=== PATIENT | male | born 1950 | race Caucasian/White ===

== ENCOUNTER 2017-02-18 14:56 | Outpatient (CLI) | payer MEDICARE ==
--- NOTE | 2017-02-18 19:34 | RAD ---
TWO VIEWS KUB: History: Renal stones. Comparisons made with CT dated 07-23-10. FINDINGS: No suspicious stones are seen over the expected course of the renal collecting systems. There are mul tiple small phleboliths seen within the lower pelvis. There is mild scattered degenerative change mos t pronounced at L5-S1 where there is severe facet osteoarthritic change. No acute osseous abnormality is evident. IMPRESSION: No suspicious calcifications demonstrated. POS: JEAN CLAUDE
== END 2017-02-18 14:57 | disposition home or self-care (01) ==
LOC: RAD 14:56
PROVIDERS: ATTEND Urology
DX: Z87.442 Personal history of urinary calculi (principal)
CPT/HCPCS: 74000

== ENCOUNTER 2017-04-24 16:30 | Outpatient (CLI) | payer MEDICARE ==
[2017-04-24 17:41] LABS: Hemoglobin 13.4 g/dL (14.0-18.0); Mean Corpuscular HGB CONC 32.7 g/dL (32.0-36.0); Mean Corpuscular Hemoglobin 33.5 pg (27.0-31.0); Mean Platelet Volume 7.6 fL (7.4-10.4); Platelet Count 234 thou/uL (130-400); RBC Distribution Width 11.4 % (11.5-14.5); Red Blood Cell (RBC) Count 4.01 mill/uL (4.70-6.10); White Blood Cell (WBC) Count 6.8 thou/uL (4.8-10.8)
[2017-04-24 17:45] LABS: PTT 28.6 SEC (22.9-36.1)
[2017-04-24 17:46] LABS: Prothrombin Time 13.4 SEC (12.0-14.7)
[2017-04-24 18:19] LABS: Anion Gap 10 mmol/L (10-20); BUN (Urea Nitrogen) 14 mg/dL (8.4-25.7); Calc. Creatinine Clearance 0 mL/min (70-130); Calcium 9.5 mg/dL (7.8-10.44); Carbon Dioxide 26 mmol/L (23-31); Chloride 107 mmol/L (98-107); Estimated GFR-MDRD 86; Glucose 86 mg/dL (80-115); Sodium 139 mmol/L (136-145)
== END 2017-04-24 16:31 | disposition home or self-care (01) ==
LOC: LABBT 16:30
PROVIDERS: ATTEND Urology
DX: Z01.812 Encounter for preprocedural laboratory examination (principal); N40.0 Benign prostatic hyperplasia without lower urinary tract symptoms
CPT/HCPCS: 80048; 81001; 85027; 85610; 85730

== ENCOUNTER 2017-04-30 07:55 | Day surgery (SDC) | payer MEDICARE ==
[2017-04-24 16:59] VITALS: BMI 30.2
[2017-04-30] MEDS ORDERED: ePHEDrine/0.9% NaCl/PF SYRINGE 50 mg/10 ml ONE (11:18)
[2017-04-30] MEDS ORDERED: Dexamethasone 20 MG/5 ML VIAL ONE (11:18)
[2017-04-30] MEDS ORDERED: Ondansetron HCl/PF 4 MG/2 ML Vial ONE (11:18)
[2017-04-30] MEDS ORDERED: Lidocaine 1% PF 5 ML VIAL ONE (11:18)
[2017-04-30] MEDS ORDERED: PROPOFOL 200 MG/20 ML VIAL ONE (11:18)
[2017-04-30] MEDS ORDERED: Metoclopramide HCl 10 MG/2 ML VIAL ONE (11:18)
[2017-04-30] MEDS ORDERED: diphenhydrAMINE 50 MG/ML VIAL ONE (11:18)
[2017-04-30] MEDS ORDERED: Levofloxacin 500 mg/D5W 100 ml Premix Bag ONE (11:44)
[2017-04-30] MEDS ORDERED: Dexamethasone 10 MG in Sodium Chloride 0.9% 50 ML IVPB SCH (12:00)
[2017-04-30] MEDS ORDERED: B & O ONE (12:32)
[2017-04-30] MEDS ORDERED: Midazolam HCl 2 mg/2 ml Vial ONE (13:33)
[2017-04-30] MEDS ORDERED: Fentanyl 100 MCG/2 ML VIAL ONE (13:33)
[2017-04-30] MEDS ORDERED: Morphine 4 MG/ML VIAL ONE (15:32)
[2017-04-30] MEDS ORDERED: HYDROcodone/Acetaminophen 5/325 mg Tablet ONE (16:19)
--- NOTE | 2017-05-01 00:19 | OP ---
DATE OF SERVICE: 04/30/2017 PREOPERATIVE DIAGNOSIS: Benign prostatic hypertrophy. POSTOPERATIVE DIAGNOSIS: Benign prostatic hypertrophy. PROCEDURE: GreenLight laser vaporization of the prostate. SURGEON: Dr. Hernandez. ANESTHESIA: General with LMA. FINDINGS: Adequate resection of the prostatic urethra. Good stream noted at the end of the case. [id number] used COMPLICATIONS: No complications. BLOOD LOSS: Minimal blood loss. DRAIN REMAININ-Finnish 2-way. SPECIMENS: Prostate. DESCRIPTION OF PROCEDURE: The patient was brought to the room by Anesthesia and kept in supine position. After general anesthetic, , his legs were placed in lithotomy position. His perineum was prepped and draped in a sterile fashion. Using a 23-Finnish cystoscope and a 30-degree lens, it was traversed and the bladder inspected. The ureteral orifices were identified and preserved throughout the case. The high-riding bladder neck was taken down to the level of the trigone. A power level 80 was used for the majority of this and the lateral lobes near the bladder neck near the mid gland. A power of 180 was used. A portion of the tissue was wedged so there were a couple chips sent for specimen, but the prostate itself was small enough that enucleation was not required. When adequate resection appeared to be done, the scope was removed and the stream was noted strong and bit delayed in comparison to what I would expect, so I went back in and noted that the ureter did seem quite prominent and might have been obstructing so I took the veru down with a power level of 60 and then further contoured the bladder neck and apex. When the full bladder and the scope removed, a good stream was noted. The scope was pulled back in and the bladder decompressed. Hemostasis insured with a power level of 60 pending some of the prostatic bed or any areas of concern. All the chips and debris were noted to be out and then the scope was removed the final timeout and a 20-Finnish catheter was placed to gravity. Total of 92,677 joules were used. The patient was then awakened and transferred to PACU in stable condition. [facility]
--- NOTE | 2017-05-02 00:48 | EKG ---
Test Reason : PREOP Blood Pressure : / mmHG Vent. Rate : 053 BPM Atrial Rate : 053 BPM P-R Int : 154 ms QRS Dur : 098 ms QT Int : 458 ms P-R-T Axes : 058 024 035 degrees QTc Int : 429 ms Sinus bradycardia Otherwise normal ECG No previous ECGs available Confirmed by CAN PETERSON, DR. Flores ([id number]) on 05/02/2017 12:47:59 AM Referred By: JIMMIE Confirmed By:DR. Sandra NORTH MD
== END 2017-04-30 16:49 | disposition home or self-care (01) ==
LOC: SDC 07:55
PROVIDERS: ATTEND Urology
PROC: 0V508ZZ Destruction of Prostate, Via Natural or Artificial Opening Endoscopic (ICD-10-PCS; principal; 2017-04-30)
DX: N40.1 Benign prostatic hyperplasia with lower urinary tract symptoms (principal); R35.0 Frequency of micturition; I25.10 Atherosclerotic heart disease of native coronary artery without angina pectoris; E78.5 Hyperlipidemia, unspecified; I10 Essential (primary) hypertension; Z79.82 Long term (current) use of aspirin; Z79.899 Other long term (current) drug therapy; Z98.890 Other specified postprocedural states; Z87.442 Personal history of urinary calculi; Z87.891 Personal history of nicotine dependence
CPT/HCPCS: 88305; 93005; 93010; 96374; J0131; J1100; J1200; J1956; J2001; J2250; J2270; J2405; J2704; J2765; J3010; J7050

== ENCOUNTER 2025-02-03 17:01 | Inpatient (IN) | payer MEDICARE ==
[2025-02-03] MEDS ORDERED: Ondansetron PF 4 MG/2 ML Vial IVP PRN (21:34)
[2025-02-04 08:03] LABS: ALT (SGPT) 503 U/L (Less than 45); AST (SGOT) 208 U/L (11-34); Albumin 2.5 g/dL (3.1-4.5); Alkaline Phosphatase 187 U/L (40-110); Anion Gap 16 mmol/L (10-20); BUN (Urea Nitrogen) 37 mg/dL (8.4-25.7); Bilirubin, Total 0.7 mg/dL (0.3-1.2); Calc. Creatinine Clearance 12 mL/min (70-130); Calcium 7.8 mg/dL (7.8-10.44); Carbon Dioxide 17 mmol/L (23-31); Chloride 102 mmol/L (98-107); Globulin 2.1 g/dL (2.4-3.5); Glucose 92 mg/dL (83-110); Potassium 4.3 mmol/L (3.5-5.1); Sodium 131 mmol/L (136-145)
[2025-02-04] MEDS: Famotidine 20 MG TAB PO SCH (08:19)
[2025-02-04 09:23] LABS: #Basophils Less than 0.03 10x3/uL (0.0-0.2); #Eosinophils 0.23 10x3/uL (0.0-0.7); #Monocytes 0.80 10x3/uL (0.11-0.59); #Neutrophils 4.87 10x3/uL (1.40-6.50); %Basophils 0.2 % (0.0-1.0); %Eosinophils 2.8 % (0.0-10.0); %Lymphocytes 28.1 % (21.0-51.0); %Monocytes 9.7 % (0.0-10.0); %Neutrophils 58.8 % (42.0-75.0); Hematocrit 33.1 % (42.0-52.0); Hemoglobin 10.9 g/dL (14.0-18.0); Mean Corpuscular Hemoglobin 32.3 pg (27.0-31.0); Mean Corpuscular Volume 98.2 fL (78.0-98.0); Platelet Count 106 10x3/uL (130-400); Red Blood Cell (RBC) Count 3.37 mill/uL (4.70-6.10); White Blood Cell (WBC) Count 8.28 10x3/uL (4.8-10.8)
[2025-02-04 10:50] LABS: Burr Cells MODERATE= 6-15 cells HPF (0-1); Platelet Adequacy Comment Platelets Decreased; Polychromasia SLIGHT = 2-3 cells HPF (0-2)
[2025-02-04 10:52] LABS: Hematocrit 33.1 % (42.0-52.0); Hemoglobin 11.3 g/dL (14.0-18.0)
[2025-02-04] MEDS: Pantoprazole 40 MG VIAL IVP SCH ×2 (11:35→21:06)
[2025-02-04] MEDS ORDERED: Piperacillin/Tazobactam 2.25 GM in Sodium Chloride 0.9% 100 ML IVPB SCH (19:00)
[2025-02-04 19:06] LABS: #Basophils Less than 0.03 10x3/uL (0.0-0.2); #Eosinophils 0.23 10x3/uL (0.0-0.7); #Monocytes 1.12 10x3/uL (0.11-0.59); #Neutrophils 4.89 10x3/uL (1.40-6.50); %Basophils 0.2 % (0.0-1.0); %Eosinophils 2.7 % (0.0-10.0); %Lymphocytes 27.1 % (21.0-51.0); %Monocytes 13.0 % (0.0-10.0); %Neutrophils 56.8 % (42.0-75.0); Hematocrit 32.5 % (42.0-52.0); Hemoglobin 10.8 g/dL (14.0-18.0); Mean Corpuscular Hemoglobin 32.6 pg (27.0-31.0); Mean Corpuscular Volume 98.2 fL (78.0-98.0); Platelet Count 106 10x3/uL (130-400); Red Blood Cell (RBC) Count 3.31 mill/uL (4.70-6.10); White Blood Cell (WBC) Count 8.61 10x3/uL (4.8-10.8)
[2025-02-05 05:52] LABS: ALT (SGPT) 342 U/L (Less than 45); AST (SGOT) 84 U/L (11-34); Albumin 2.4 g/dL (3.1-4.5); Alkaline Phosphatase 161 U/L (40-110); Anion Gap 17 mmol/L (10-20); BUN (Urea Nitrogen) 40 mg/dL (8.4-25.7); Bilirubin, Total 0.7 mg/dL (0.3-1.2); Calc. Creatinine Clearance 10 mL/min (70-130); Calcium 7.8 mg/dL (7.8-10.44); Carbon Dioxide 15 mmol/L (23-31); Chloride 101 mmol/L (98-107); Globulin 2.2 g/dL (2.4-3.5); Glucose 87 mg/dL (83-110); Potassium 4.3 mmol/L (3.5-5.1); Sodium 129 mmol/L (136-145)
[2025-02-05 06:20] LABS: #Basophils 0.03 10x3/uL (0.0-0.2); #Eosinophils 0.32 10x3/uL (0.0-0.7); #Monocytes 1.05 10x3/uL (0.11-0.59); #Neutrophils 5.12 10x3/uL (1.40-6.50); %Basophils 0.3 % (0.0-1.0); %Eosinophils 3.7 % (0.0-10.0); %Lymphocytes 25.2 % (21.0-51.0); %Monocytes 12.0 % (0.0-10.0); %Neutrophils 58.5 % (42.0-75.0); Hematocrit 31.7 % (42.0-52.0); Hemoglobin 11.1 g/dL (14.0-18.0); Mean Corpuscular Hemoglobin 33.4 pg (27.0-31.0); Mean Corpuscular Volume 95.5 fL (78.0-98.0); Platelet Count 111 10x3/uL (130-400); Red Blood Cell (RBC) Count 3.32 mill/uL (4.70-6.10); White Blood Cell (WBC) Count 8.76 10x3/uL (4.8-10.8)
[2025-02-05 14:04] LABS: HBSAB Concentration Less than 8.00 mIU/mL; Hep B Core Total Ab NONREACTIVE (NonReactive); Hep B Core Total Index 0.07 S/CO (0-0.79); Hep B Surf Ag NONREACTIVE S/CO (NonReactive); Hep C IgG Ab NONREACTIVE S/CO (NonReactive); Hep C Index 0.04 S/CO (0-0.79)
[2025-02-05] MEDS: Heparin 10,000 UNITS/ 10 ML VIAL CATH PRN (19:51)
[2025-02-05] MEDS: Mupirocin 1 GM TUBE NASAL DECOLONIZATION NASAL SCH (20:52)
[2025-02-06 04:41] LABS: #Basophils 0.03 10x3/uL (0.0-0.2); #Eosinophils 0.15 10x3/uL (0.0-0.7); #Monocytes 1.06 10x3/uL (0.11-0.59); #Neutrophils 3.23 10x3/uL (1.40-6.50); %Basophils 0.5 % (0.0-1.0); %Eosinophils 2.4 % (0.0-10.0); %Lymphocytes 27.5 % (21.0-51.0); %Monocytes 17.1 % (0.0-10.0); %Neutrophils 52.0 % (42.0-75.0); Hematocrit 30.0 % (42.0-52.0); Hemoglobin 10.2 g/dL (14.0-18.0); Mean Corpuscular Hemoglobin 32.3 pg (27.0-31.0); Mean Corpuscular Volume 94.9 fL (78.0-98.0); Platelet Count 106 10x3/uL (130-400); Red Blood Cell (RBC) Count 3.16 mill/uL (4.70-6.10); White Blood Cell (WBC) Count 6.21 10x3/uL (4.8-10.8)
[2025-02-06 04:50] LABS: ALT (SGPT) 225 U/L (Less than 45); AST (SGOT) 43 U/L (11-34); Albumin 2.3 g/dL (3.1-4.5); Alkaline Phosphatase 131 U/L (40-110); Anion Gap 18 mmol/L (10-20); BUN (Urea Nitrogen) 31 mg/dL (8.4-25.7); Bilirubin, Total 0.9 mg/dL (0.3-1.2); Calc. Creatinine Clearance 11 mL/min (70-130); Calcium 7.7 mg/dL (7.8-10.44); Carbon Dioxide 16 mmol/L (23-31); Chloride 98 mmol/L (98-107); Globulin 2.2 g/dL (2.4-3.5); Glucose 78 mg/dL (83-110); Potassium 3.9 mmol/L (3.5-5.1); Sodium 128 mmol/L (136-145)
[2025-02-06] MEDS: PNEUMOC 20-VAL CONJ-DIP CRM/PF 0.5 ML SYRINGE IM ONE (08:06)
[2025-02-08 12:54] LABS: ALT (SGPT) 129 U/L (Less than 45); AST (SGOT) 28 U/L (11-34); Albumin 2.6 g/dL (3.1-4.5); Alkaline Phosphatase 110 U/L (40-110); Anion Gap 14 mmol/L (10-20); BUN (Urea Nitrogen) 28 mg/dL (8.4-25.7); Bilirubin, Total 0.6 mg/dL (0.3-1.2); Calc. Creatinine Clearance 10 mL/min (70-130); Calcium 7.9 mg/dL (7.8-10.44); Carbon Dioxide 21 mmol/L (23-31); Chloride 94 mmol/L (98-107); Globulin 2.4 g/dL (2.4-3.5); Glucose 105 mg/dL (83-110); Potassium 3.7 mmol/L (3.5-5.1); Sodium 125 mmol/L (136-145)
[2025-02-08 13:18] LABS: #Basophils Less than 0.03 10x3/uL (0.0-0.2); #Eosinophils 0.34 10x3/uL (0.0-0.7); #Monocytes 1.15 10x3/uL (0.11-0.59); #Neutrophils 4.03 10x3/uL (1.40-6.50); %Basophils 0.3 % (0.0-1.0); %Eosinophils 5.0 % (0.0-10.0); %Lymphocytes 18.3 % (21.0-51.0); %Monocytes 16.9 % (0.0-10.0); %Neutrophils 59.1 % (42.0-75.0); Hematocrit 27.7 % (42.0-52.0); Hemoglobin 9.6 g/dL (14.0-18.0); Mean Corpuscular Hemoglobin 33.0 pg (27.0-31.0); Mean Corpuscular Volume 95.2 fL (78.0-98.0); Platelet Count 114 10x3/uL (130-400); Red Blood Cell (RBC) Count 2.91 mill/uL (4.70-6.10); White Blood Cell (WBC) Count 6.82 10x3/uL (4.8-10.8)
[2025-02-08] MEDS: Acetaminophen 325 MG TAB PO PRN (20:13)
[2025-02-08 20:38] LABS: Myeloperoxidase AutoAbs <0.2 units (0.0-0.9); Proteinase-3 AutoAbs Less than 0.2 units (0.0-0.9)
[2025-02-08] MEDS: cloNIDine 0.1 MG TAB PO SCH (20:46)
[2025-02-09 08:53] LABS: Chloride 98 mmol/L (98-107); Potassium 4.5 mmol/L (3.5-5.1); Sodium 133 mmol/L (136-145)
[2025-02-09 08:54] LABS: Albumin 2.4 g/dL (3.1-4.5); Calcium 8.0 mg/dL (7.8-10.44)
[2025-02-09 08:55] LABS: Globulin 2.5 g/dL (2.4-3.5); Glucose 95 mg/dL (83-110)
[2025-02-09 08:56] LABS: Anion Gap 16 mmol/L (10-20); Carbon Dioxide 24 mmol/L (23-31)
[2025-02-09 08:58] LABS: Alkaline Phosphatase 98 U/L (40-110); Bilirubin, Total 0.6 mg/dL (0.3-1.2); Calc. Creatinine Clearance 13 mL/min (70-130)
[2025-02-09 08:59] LABS: BUN (Urea Nitrogen) 17 mg/dL (8.4-25.7)
[2025-02-09 09:01] LABS: ALT (SGPT) 100 U/L (Less than 45); AST (SGOT) 27 U/L (11-34)
[2025-02-09] MEDS: Lisinopril 10 MG TAB PO SCH (21:31)
[2025-02-10 04:41] LABS: ALT (SGPT) 82 U/L (Less than 45); AST (SGOT) 23 U/L (11-34); Albumin 2.4 g/dL (3.1-4.5); Alkaline Phosphatase 94 U/L (40-110); Anion Gap 17 mmol/L (10-20); BUN (Urea Nitrogen) 21 mg/dL (8.4-25.7); Bilirubin, Total 0.6 mg/dL (0.3-1.2); Calc. Creatinine Clearance 12 mL/min (70-130); Calcium 8.0 mg/dL (7.8-10.44); Carbon Dioxide 23 mmol/L (23-31); Chloride 96 mmol/L (98-107); Globulin 2.7 g/dL (2.4-3.5); Glucose 96 mg/dL (83-110); Potassium 3.8 mmol/L (3.5-5.1); Sodium 132 mmol/L (136-145)
[2025-02-10] MEDS: Methocarbamol 500 MG TAB PO PRN (18:16)
[2025-02-11 04:59] LABS: #Basophils Less than 0.03 10x3/uL (0.0-0.2); #Eosinophils 0.19 10x3/uL (0.0-0.7); #Monocytes 1.35 10x3/uL (0.11-0.59); #Neutrophils 6.19 10x3/uL (1.40-6.50); %Basophils 0.2 % (0.0-1.0); %Eosinophils 2.1 % (0.0-10.0); %Lymphocytes 15.3 % (21.0-51.0); %Monocytes 14.7 % (0.0-10.0); %Neutrophils 67.3 % (42.0-75.0); Hematocrit 25.6 % (42.0-52.0); Hemoglobin 8.6 g/dL (14.0-18.0); Mean Corpuscular Hemoglobin 33.2 pg (27.0-31.0); Mean Corpuscular Volume 98.8 fL (78.0-98.0); Platelet Count 164 10x3/uL (130-400); Red Blood Cell (RBC) Count 2.59 mill/uL (4.70-6.10); White Blood Cell (WBC) Count 9.20 10x3/uL (4.8-10.8)
[2025-02-11 05:09] LABS: ALT (SGPT) 60 U/L (Less than 45); AST (SGOT) 22 U/L (11-34); Albumin 2.3 g/dL (3.1-4.5); Alkaline Phosphatase 83 U/L (40-110); Anion Gap 17 mmol/L (10-20); BUN (Urea Nitrogen) 18 mg/dL (8.4-25.7); Bilirubin, Total 0.6 mg/dL (0.3-1.2); Calc. Creatinine Clearance 14 mL/min (70-130); Calcium 8.2 mg/dL (7.8-10.44); Carbon Dioxide 25 mmol/L (23-31); Chloride 97 mmol/L (98-107); Globulin 2.9 g/dL (2.4-3.5); Glucose 84 mg/dL (83-110); Potassium 3.8 mmol/L (3.5-5.1); Sodium 135 mmol/L (136-145)
[2025-02-11 06:56] VITALS: BMI 31.0
[2025-02-12 05:30] LABS: #Basophils 0.03 10x3/uL (0.0-0.2); #Eosinophils 0.49 10x3/uL (0.0-0.7); #Monocytes 1.13 10x3/uL (0.11-0.59); #Neutrophils 5.40 10x3/uL (1.40-6.50); %Basophils 0.3 % (0.0-1.0); %Eosinophils 5.6 % (0.0-10.0); %Lymphocytes 19.1 % (21.0-51.0); %Monocytes 12.9 % (0.0-10.0); %Neutrophils 61.8 % (42.0-75.0); Hematocrit 26.0 % (42.0-52.0); Hemoglobin 8.9 g/dL (14.0-18.0); Mean Corpuscular Hemoglobin 33.2 pg (27.0-31.0); Mean Corpuscular Volume 97.0 fL (78.0-98.0); Platelet Count 191 10x3/uL (130-400); Red Blood Cell (RBC) Count 2.68 mill/uL (4.70-6.10); White Blood Cell (WBC) Count 8.75 10x3/uL (4.8-10.8)
[2025-02-12 05:51] LABS: Anion Gap 15 mmol/L (10-20); BUN (Urea Nitrogen) 35 mg/dL (8.4-25.7); Calc. Creatinine Clearance 13 mL/min (70-130); Calcium 8.2 mg/dL (7.8-10.44); Carbon Dioxide 27 mmol/L (23-31); Chloride 96 mmol/L (98-107); Glucose 95 mg/dL (83-110); Potassium 3.6 mmol/L (3.5-5.1); Sodium 134 mmol/L (136-145)
[2025-02-14 05:59] LABS: #Basophils 0.06 10x3/uL (0.0-0.2); #Eosinophils 0.58 10x3/uL (0.0-0.7); #Monocytes 1.31 10x3/uL (0.11-0.59); #Neutrophils 5.52 10x3/uL (1.40-6.50); %Basophils 0.7 % (0.0-1.0); %Eosinophils 6.4 % (0.0-10.0); %Lymphocytes 17.9 % (21.0-51.0); %Monocytes 14.3 % (0.0-10.0); %Neutrophils 60.4 % (42.0-75.0); Hematocrit 27.3 % (42.0-52.0); Hemoglobin 9.1 g/dL (14.0-18.0); Mean Corpuscular Hemoglobin 32.6 pg (27.0-31.0); Mean Corpuscular Volume 97.8 fL (78.0-98.0); Platelet Count 261 10x3/uL (130-400); Red Blood Cell (RBC) Count 2.79 mill/uL (4.70-6.10); White Blood Cell (WBC) Count 9.13 10x3/uL (4.8-10.8)
[2025-02-14 06:18] LABS: ALT (SGPT) 37 U/L (Less than 45); AST (SGOT) 28 U/L (11-34); Albumin 2.6 g/dL (3.1-4.5); Alkaline Phosphatase 78 U/L (40-110); Anion Gap 18 mmol/L (10-20); BUN (Urea Nitrogen) 36 mg/dL (8.4-25.7); Bilirubin, Total 0.6 mg/dL (0.3-1.2); Calc. Creatinine Clearance 14 mL/min (70-130); Calcium 8.5 mg/dL (7.8-10.44); Carbon Dioxide 27 mmol/L (23-31); Chloride 97 mmol/L (98-107); Globulin 3.2 g/dL (2.4-3.5); Glucose 97 mg/dL (83-110); Magnesium 1.9 mg/dL (1.6-2.6); Potassium 3.7 mmol/L (3.5-5.1); Sodium 138 mmol/L (136-145)
[2025-02-15 06:11] LABS: Hematocrit 30.0 % (42.0-52.0); Hemoglobin 9.9 g/dL (14.0-18.0); Mean Corpuscular Hemoglobin 32.5 pg (27.0-31.0); Mean Corpuscular Volume 98.4 fL (78.0-98.0); Platelet Count 331 10x3/uL (130-400); Red Blood Cell (RBC) Count 3.05 mill/uL (4.70-6.10); White Blood Cell (WBC) Count 8.64 10x3/uL (4.8-10.8)
[2025-02-15 06:25] LABS: ALT (SGPT) 35 U/L (Less than 45); AST (SGOT) 42 U/L (11-34); Albumin 2.9 g/dL (3.1-4.5); Alkaline Phosphatase 84 U/L (40-110); Anion Gap 18 mmol/L (10-20); BUN (Urea Nitrogen) 43 mg/dL (8.4-25.7); Bilirubin, Total 0.6 mg/dL (0.3-1.2); Calc. Creatinine Clearance 12 mL/min (70-130); Calcium 8.8 mg/dL (7.8-10.44); Carbon Dioxide 27 mmol/L (23-31); Chloride 98 mmol/L (98-107); Globulin 3.5 g/dL (2.4-3.5); Glucose 98 mg/dL (83-110); Magnesium 1.8 mg/dL (1.6-2.6); Potassium 3.6 mmol/L (3.5-5.1); Sodium 139 mmol/L (136-145)
[2025-02-15 07:29] LABS: Platelet Adequacy Comment Platelets Normal; Polychromasia SLIGHT = 2-3 cells HPF (0-2)
[2025-02-15] MEDS: NIFEdipine XL 60 MG ER.TAB PO SCH (08:44)
[2025-02-15] MEDS ORDERED: Heparin 10,000 UNITS/ 10 ML VIAL ONE (13:30)
[2025-02-15] MEDS ORDERED: Famotidine/PF 20 mg/2ml Vial ONE (14:48)
[2025-02-15] MEDS ORDERED: fentaNYL PF 100 MCG/2 ML SYRINGE ONE (14:57)
[2025-02-15] MEDS ORDERED: Glycopyrrolate 0.2 MG/ML 5 ML SYRINGE ONE (14:58)
[2025-02-15] MEDS ORDERED: Lidocaine 1% PF 5 ML VIAL ONE (14:59)
[2025-02-15] MEDS ORDERED: PROPOFOL 200 MG/20 ML VIAL ONE (15:22)
[2025-02-15] MEDS ORDERED: Lidocaine 1% (PF) 30 ML VIAL ONE (15:38)
[2025-02-15] MEDS ORDERED: Ondansetron PF 4 MG/2 ML Vial ONE (15:41)
[2025-02-16 05:42] LABS: #Basophils 0.03 10x3/uL (0.0-0.2); #Eosinophils Less than 0.03 10x3/uL (0.0-0.7); #Monocytes 0.70 10x3/uL (0.11-0.59); #Neutrophils 6.04 10x3/uL (1.40-6.50); %Basophils 0.4 % (0.0-1.0); %Eosinophils 0.0 % (0.0-10.0); %Lymphocytes 14.6 % (21.0-51.0); %Monocytes 8.8 % (0.0-10.0); %Neutrophils 75.6 % (42.0-75.0); Hematocrit 26.7 % (42.0-52.0); Hemoglobin 9.2 g/dL (14.0-18.0); Mean Corpuscular Hemoglobin 33.2 pg (27.0-31.0); Mean Corpuscular Volume 96.4 fL (78.0-98.0); Platelet Count 311 10x3/uL (130-400); Red Blood Cell (RBC) Count 2.77 mill/uL (4.70-6.10); White Blood Cell (WBC) Count 7.99 10x3/uL (4.8-10.8)
[2025-02-16 06:06] LABS: ALT (SGPT) 28 U/L (Less than 45); AST (SGOT) 24 U/L (11-34); Albumin 2.6 g/dL (3.1-4.5); Alkaline Phosphatase 69 U/L (40-110); Anion Gap 18 mmol/L (10-20); BUN (Urea Nitrogen) 52 mg/dL (8.4-25.7); Bilirubin, Total 0.4 mg/dL (0.3-1.2); Calc. Creatinine Clearance 12 mL/min (70-130); Calcium 8.2 mg/dL (7.8-10.44); Carbon Dioxide 25 mmol/L (23-31); Chloride 99 mmol/L (98-107); Globulin 3.0 g/dL (2.4-3.5); Glucose 120 mg/dL (83-110); Magnesium 1.8 mg/dL (1.6-2.6); Potassium 4.2 mmol/L (3.5-5.1); Sodium 138 mmol/L (136-145)
[2025-02-16] MEDS: Heparin 10,000 UNITS/ 10 ML VIAL CATH SCH (12:41)
[2025-02-16 12:52] VITALS: BMI 31.0
[2025-02-16] MEDS: Pantoprazole 40 MG DR.TAB PO SCH (21:34)
[2025-02-17 05:24] LABS: Hematocrit 27.5 % (42.0-52.0); Hemoglobin 9.3 g/dL (14.0-18.0); Mean Corpuscular Hemoglobin 33.1 pg (27.0-31.0); Mean Corpuscular Volume 97.9 fL (78.0-98.0); Platelet Count 278 10x3/uL (130-400); Red Blood Cell (RBC) Count 2.81 mill/uL (4.70-6.10); White Blood Cell (WBC) Count 8.84 10x3/uL (4.8-10.8)
[2025-02-17 06:23] LABS: Anisocytosis SLIGHT = 6-15 cells HPF (0-5); Burr Cells SLIGHT = 2-5 cells HPF (0-1); Macrocytosis SLIGHT = 6-15 cells HPF (0-5); Platelet Adequacy Comment Platelets Normal; Polychromasia MODERATE = 3-4 cells HPF (0-2); Smudge Cells 11.8 %
[2025-02-17 08:25] VITALS: BP 152/81; TEMP 97.8
[2025-02-18] MEDS ORDERED: NIFEdipine XL 60 MG ER.TAB PO SCH (09:00)
[2025-02-18] MEDS ORDERED: Metoprolol Succinate XL 25 MG ER.TAB PO SCH (09:00)
== END 2025-02-17 15:37 | disposition home or self-care (01) | DRG 673 ==
LOC: T4-A 19:02
PROVIDERS: ADMIT Hospitalist; ATTEND Student in an Organized Health Care Education/Training Program
PROC: 3E03329 Introduction of Other Anti-infective into Peripheral Vein, Percutaneous Approach (ICD-10-PCS; 2025-02-04)
PROC: 02HV33Z Insertion of Infusion Device into Superior Vena Cava, Percutaneous Approach (ICD-10-PCS; principal; 2025-02-05)
PROC: B5181ZA Fluoroscopy of Superior Vena Cava using Low Osmolar Contrast, Guidance (ICD-10-PCS; 2025-02-05)
PROC: 5A1D70Z Performance of Urinary Filtration, Intermittent, Less than 6 Hours Per Day (ICD-10-PCS; 2025-02-05)
PROC: 0JH63XZ Insertion of Tunneled Vascular Access Device into Chest Subcutaneous Tissue and Fascia, Percutaneous Approach (ICD-10-PCS; 2025-02-15)
PROC: 02HV33Z Insertion of Infusion Device into Superior Vena Cava, Percutaneous Approach (ICD-10-PCS; 2025-02-15)
PROC: B5181ZA Fluoroscopy of Superior Vena Cava using Low Osmolar Contrast, Guidance (ICD-10-PCS; 2025-02-15)
DX: N17.0 Acute kidney failure with tubular necrosis (principal); K72.00 Acute and subacute hepatic failure without coma; A09 Infectious gastroenteritis and colitis, unspecified; E87.20 Acidosis, unspecified; E87.1 Hypo-osmolality and hyponatremia; K92.1 Melena; M54.50 Low back pain, unspecified; I25.10 Atherosclerotic heart disease of native coronary artery without angina pectoris; L25.9 Unspecified contact dermatitis, unspecified cause; I10 Essential (primary) hypertension; E78.5 Hyperlipidemia, unspecified; Z79.899 Other long term (current) drug therapy; Z98.890 Other specified postprocedural states
CPT/HCPCS: 36415; 36416; 71045; 76770; 80048; 80053; 83516; 83605; 83735; 84145; 85025; 86037; 86480; 86704; 86706; 86803; 87340; 90935; 94640; C1752; G0257; J1100; J1308; J1642; J1644; J2003; J2270; J2405; J2470; J2543; J2704; J3010; J7030; J7042; J7120; Q0162